=== PATIENT | female | born 1980 | race Caucasian/White ===

== ENCOUNTER 2017-02-02 23:19 | Emergency (ER) | payer SELFPAY ==
[~2017-02-02] VITALS: Ht 162.6 cm; Wt 61.2 kg
[~2017-02-02 23:19] MED LIST: BACTRIM DS TAB1 EACH PO; KEFLEX500 MG PO
[2017-02-02] MEDS ORDERED: [UNRECOGNIZED DRUG - REMARK] (23:35)
[2017-02-02] MEDS ORDERED: VISTARIL25 MG PO (23:35)
[2017-02-03] MEDS ORDERED: NORCO 5-325 TA1 EACH PO (00:20)
[2017-02-03] MEDS ORDERED: CRUTCH1 EACH MISC (00:21)
== END 2017-02-03 00:52 | disposition home or self-care (01) ==
LOC: ED 23:19
DX: S70.02XA Contusion of left hip, initial encounter (principal); F17.200 Nicotine dependence, unspecified, uncomplicated; Z98.51 Tubal ligation status; Z79.899 Other long term (current) drug therapy; V29.9XXA Motorcycle rider (driver) (passenger) injured in unspecified traffic accident, initial encounter
CPT/HCPCS: 73080; 73502; 99283

== ENCOUNTER 2018-01-06 11:47 | Emergency (ER) | payer MEDICAID ==
[~2018-01-06] VITALS: Ht 162.6 cm; Wt 72.6 kg
[~2018-01-06 11:47] MED LIST changes: +CRUTCH1 EACH MISC; +NORCO 5-325 TA1 EACH PO; +VISTARIL25 MG PO; +[UNRECOGNIZED DRUG - REMARK]
[2018-01-06] MEDS ORDERED: LITHIUM CARBON150 MG PO (12:01)
[2018-01-06] MEDS ORDERED: CIPRO500 MG PO (14:32)
[2018-01-06] MEDS ORDERED: PROMETHAZINE HC50 MG PO (14:32)
== END 2018-01-06 14:46 | disposition home or self-care (01) ==
LOC: ED 11:47
DX: K52.9 Noninfective gastroenteritis and colitis, unspecified (principal); F15.10 Other stimulant abuse, uncomplicated; F17.200 Nicotine dependence, unspecified, uncomplicated; Z79.899 Other long term (current) drug therapy
CPT/HCPCS: 74177; 80053; 81001; 83690; 84703; 85025; 96361; 96374; 96375; 99284; G0480; J1885; J2060; J2405; J2550; J7030; Q9967

== ENCOUNTER 2018-09-23 11:03 | Emergency (ER) | payer OTHER ==
[~2018-09-23] VITALS: Ht 162.6 cm; Wt 72.6 kg
[~2018-09-23 11:03] MED LIST changes: +CIPRO500 MG PO; +LITHIUM CARBON150 MG PO; +PROMETHAZINE HC50 MG PO
--- OUTSIDE RECORDS SUMMARY | 2018-09-23 11:08 | XMS ---
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 Care History Medical/Surgical 09/23/2018 [facility] \T\middot;\T\nbsp; PATIENT IS A [employer] MEMBER. \T\middot;\T\nbsp; PLEASE REFER PATIENT TO [facility] FOR NON EMERGENT MEDICAL NEEDS. \T\middot;\ T\nbsp; [facility] CAN SEE PATIENTS SAME DAY FOR APTS IF PATIENT CALLS FIRST THING IN THE MORNING. E.D. VISIT COUNT (12 MO.) 2 [facility] TOTAL 2 NOTE: Visits indicate total known visits. 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
== END 2018-09-23 11:22 | disposition home or self-care (01) ==
LOC: ED 11:03
DX: M79.675 Pain in left toe(s) (principal)

== ENCOUNTER 2019-04-09 03:31 | Emergency (ER) | payer OTHER ==
[~2019-04-09] VITALS: Ht 162.6 cm; Wt 72.6 kg
--- OUTSIDE RECORDS SUMMARY | 2019-04-09 03:34 | XMS ---
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 Care History Medical/Surgical 09/23/2018 [facility] \T\middot;\T\nbsp; PATIENT IS A [employer] MEMBER. \T\middot;\T\nbsp; PLEASE REFER PATIENT TO [facility] FOR NON EMERGENT MEDICAL NEEDS. \T\middot;\ T\nbsp; [facility] CAN SEE PATIENTS SAME DAY FOR APTS IF PATIENT CALLS FIRST THING IN THE MORNING. E.D. VISIT COUNT (12 MO.) 2 [facility] TOTAL 2 NOTE: Visits indicate total known visits. ED/UCC VISIT TRACKING (12 MO.) 04/09/2019 03:32 [facility] [place] TYPE: Emergency COMPLAINT: - CHEST AND ABDOMINAL PAIN 09/23/2018 11:04 [facility] [place] TYPE: Emergency COMPLAINT: - L BIG TOE PAIN/INJURY/MSE TO CLINIC DIAGNOSES: - Pain in left toe(s) INPATIENT VISIT TRACKING (12 MO.) No inpatient visits to display in this time frame [email or web address]
[2019-04-09] MEDS ORDERED: FUROSEMIDE20 MG PO (03:55)
[2019-04-09] MEDS ORDERED: ZOFRAN4 MG PO (06:19)
--- NOTE | 2019-04-09 20:05 | EKG ---
[facility] [address] [place] [address] Signed Poor data quality, interpretation may be adversely affected Normal sinus rhythm Left axis deviation ST \T\ T wave abnormality, consider anterior ischemia Prolonged QT Abnormal ECG No previous ECGs available Confirmed by LUCY CERDA MD ([id number]) on 04/09/2019 8:05:37 PM Electronically Signed By: LUCY CERDA MD 04/09/192004 PATIENT NAME: RENEE LEWIS KAREN Electrocardiogram DATE OF : 80 PHYSICIAN: LUCY CERDA MD REPORT #: [id number] REPORT IS CONFIDENTIAL AND NOT TO BE RELEASED WITHOUT AUTHORIZATION
== END 2019-04-09 06:45 | disposition home or self-care (01) ==
LOC: ED 03:31
DX: K29.00 Acute gastritis without bleeding (principal); F15.10 Other stimulant abuse, uncomplicated; F17.200 Nicotine dependence, unspecified, uncomplicated; F31.9 Bipolar disorder, unspecified; Z79.899 Other long term (current) drug therapy
CPT/HCPCS: 80053; 81001; 83690; 84703; 85025; 87088; 93005; 93010; 96374; 96375; 99285-25; G0480; J1885; J2405; J7030

== ENCOUNTER 2020-02-13 17:30 | Emergency (ER) | payer OTHER ==
[~2020-02-13] VITALS: Ht 162.6 cm; Wt 81.7 kg
--- OUTSIDE RECORDS SUMMARY | ~2020-02-13 | XMS | Encounter Summary ---
Demographics + + + | Address | [address] | | | [place] [address] | + + + | Home Phone | | + + + | Preferred Language | Unknown | + + + | Marital Status | Single | + + + | Sikhism Affiliation | Unknown | + + + | Race | Unknown | + + + | Ethnic Group | Unknown | + + + Author + + + | Author | [facility] | | | and [place] | + + + | Organization | [facility] | | | and [place] | + + + | Address | Unknown | + + + | Phone | Unavailable | + + + Support + + +---------+ + | Name | Relationship | Address | Phone | + + +---------+ + | Kristy Younger | ECON | Unknown | | + + +---------+ + Care Team Providers + +------+ + | Care Brick Shader Name | Role | Phone | + +------+ + | Nirali Romero PA-C | PCP | | + +------+ + Encounter Details +--------+ + + + + | Date | Type | Department | Care Team | Description | +--------+ + + + + | 11/13/ | Orders Only | [facility] | Preston Cardona, | | | 2018 | | CARDIOLOGY [place] | [address] | | | | | [address] | [place] | | | | | [place] | [address] | | | | | [address] | | | | | | [phone] | | | +--------+ + + + + Social History + +-------+ +--------+------+ | Tobacco Use | Types | Packs/Day | Years | Date | | | | | Used | | + +-------+ +--------+------+ | Never Assessed | | | | | + +-------+ +--------+------+ + + + | Sex Assigned at | Date Recorded | | | | + + + | Not on file | | + + + documented as of this encounter Plan of Treatment Not on filedocumented as of this encounter Visit Diagnoses Not on filedocumented in this encounter"
--- OUTSIDE RECORDS SUMMARY | ~2020-02-13 | XMS | Encounter Summary ---
Demographics + + + | Address | [address] | | | [place] [address] | + + + | Home Phone | | + + + | Preferred Language | Unknown | + + + | Marital Status | Single | + + + | Bahai Affiliation | Unknown | + + + | Race | Unknown | + + + | Ethnic Group | Other Race | + + + Author + + + | Author | [facility] | + + + | Organization | [facility] | + + + | Address | Unknown | + + + | Phone | Unavailable | + + + Support +---------+ +---------+---------+ | Name | Relationship | Address | Phone | +---------+ +---------+---------+ | Unk Groverk | ECON | Unknown | nophone | +---------+ +---------+---------+ Care Team Providers + +------+ + | Care School Library Media Specialist Name | Role | Phone | + +------+ + | Unknown | PCP | Unavailable | + +------+ + Encounter Details +--------+ + + + + | Date | Type | Department | Care Team | Description | +--------+ + + + + | 03/11/ | Abstract | Cardiology General | Unknown . | | | 2019 | | at [facility] [address] | | | | | | [facility] | | [facility], | | | | | | [facility] | | | | | | Floor [place], [place] | | | | | | [address] | | | | | | [phone] | | | +--------+ + + + [...] on file | | + + + + + + + | Job Start Date | Occupation | Industry | + + + + | Not on file | Not on file | Not on file | + + + + + + + + | Travel History | Travel Start | Travel End | + + + + + + | No recent travel history available. | + + documented as of this encounter Progress Elsa Davenport - 03/11/2019 11:01 AM PDT CHF New Patient Record Check List Procedure Where/Date Date requested Report received? Y/N, Where? Imaging received? CD/ IMPAX/Not Available Comments Referring Provider Dr. Cardona N/A External Referral Last EKG - Report only 08/03/2018 In CE N/A Last Echo/Stress Echo - images and report TTE 12/18/18 02/27/19 Rerequested 03/11/19 to be pushed In CE Received and in Impax Last Stress test - report only NA N/A Last Cardiac Catheterization - images and report NA Last Holter or Event monitor - report N/A Labs - (BMP, NT Pro BNP, Lipids, TSH, Hemoglobin A1C in last 6 months) In CE N/A Last Device Check Report *Schedule Device Check if pt is due NA N/A Last Cardiac MRI - report/images if avail NA Patient Preferred Lab [facility]. N/A N/A Additional Comments: documented in this enc ounter Plan of Treatment Not on filedocumented as of this encounter Visit Diagnoses Not on filedocumented in this encounter"
--- OUTSIDE RECORDS SUMMARY | ~2020-02-13 | XMS | Encounter Summary ---
Demographics + + + | Address | [address] | | | [place] [address] | + + + | Home Phone | | + + + | Preferred Language | Unknown | + + + | Marital Status | Single | + + + | Anabaptist Affiliation | Unknown | + + + | Race | Unknown | + + + | Ethnic Group | Unknown | + + + Author + + + | Author | [facility] | | | and [place] | + + + | Organization | [facility] | | | and [place] | [...] Team Providers + +------+ + | Care Surfacing Machine Operator Name | Role | Phone | + +------+ + | Nirali Romero PA-C | PCP | | + +------+ + Reason for Visit + + + | Reason | Comments | + + + | Follow-up | | + + + Evaluate & Treat (Routine) +--------+--------+ + + + + | Status | Reason | Specialty | Diagnoses / | Referred By | Referred To | | | | | Procedures | Contact | Contact | +--------+--------+ + + + + | Closed | | | Diagnoses | Alsamara, | Alsamara, | | | | | Long QT | MD Preston | MD Preston | | | | | syndrome | [address] | | | | | Schedule per | [address] | [address] | | | | | DrBharathi | [address] | [place], [place] | | | | | Alsam[place] | [place], [place] | [address] Phone: | | | | | Procedures | [address] | [phone] | | | | | CRD FOLLOW | Phone: | Fax: | | | | | UP | [phone] | [phone] | | | | | | Fax: | | | | | | | [phone] | | +--------+--------+ + + + + Encounter Details +--------+ + + + + | Date | Type | Department | Care Team | Description | +--------+ + + + + | 10/28/ | Virtual | [facility] | Preston Cardona, | Syncope, vasovagal | | 2019 | Office | CARDIOLOGY [facility] | MD Jose RODRIGUEZ | (Primary Dx); | | | Visit | [address] | [address] [address] [place], [place] | Moderate to severe | | | | [address] | [address] | pulmonary | | | | [place] | | hypertension (HCC); | | | | [address] | | CHF with right heart | | | | [phone] | | failure (HCC) | +--------+ + + + + Social History + +-------+ +--------+------+ | Tobacco Use | Types | Packs/Day | Years | Date | | | | | Used | | + +-------+ +--------+------+ | Current Every Day | | 0.25 | | | | Smoker | | | | | + +-------+ +--------+------+ + +---+---+---+ | Smokeless Tobacco: | | | | | Never Used | | | | + +---+---+---+ + + +---------+ + | Alcohol Use | Drinks/Week | oz/Week | Comments | + + +---------+ + | Not Currently | | | Alcoholic | | | | | Drinks/day: past use | + + +---------+ + + + + | Sex Assigned at | Date Recorded | | | | + + + | Not on file | | + + + documented as of this encounter Last Filed Vital Signs + + + + + | Vital Sign | Reading | Time Taken | Comments | + + + + + | Blood Pressure | 119/88 | 10/29/2019 2:49 PM | | | | | PDT | | + + + + + | Pulse | 90 | 10/29/2019 2:49 PM | | | | | PDT | | + + + + + | Temperature | - | - | | + + + + + | Respiratory Rate | - | - | | + + + + + | Oxygen Saturation | - | - | | + + + + + | Inhaled Oxygen | - | - | | | Concentration | | | | + + + + + | Weight | 81.6 kg (180 lb) | 10/29/2019 2:49 PM | | | | | PDT | | + + + + + | Height | 162.6 cm (5' 4") | 10/29/2019 2:49 PM | | | | | PDT | | + + + + + | Body Mass Index | 30.9 | 10/29/2019 2:49 PM | | | | | PDT | | + + + + + documented in this encounter Progress Notes Preston Cardona MD - 10/29/2019 3:15 PM PDTFormatting of this note might be different f rom the original. Lu Reagan has independently initiated the visit. Lu Reagan verbally confirmed her cho ice to initiate care by, and consents to receive care by Telephone. Participants: Patient All medical advice and/or management options were discussed 10/29/2019. Clinical discussion length with provider (including additional time spent for relevant tootie t review to patient's care): 11-20 minutes of medical discussion via telephone visit ([id number]) Patient has not been seen in office within the past 7 days, and outcome of this call is not to recommend soonest available office visit. No follow-ups on file. Subjective: Patient ID: Lu Reagan is a 38 y.o. female. CC: Chief Complaint Patient presents with Follow-up HPI: Patient is a 38-year-old female with history of methamphetamine abuse and right heart failu re. Has been using 40 mg furosemide daily. Was started on previous evaluation on low-dose furosemide. Feeling better no further lower extremity edema. Initially was evaluated for syncope, episodes that happened back in the spring of 2017. Latest was again unwitnessed, at that time patient unfortunately was not wearing her Holter monitor. The episodes were unwitnessed as well. Echocardiogram was only performed and showed severe pulmonary hypertension, severely dilate d RV with severely impaired systolic function. Previous patient HPI " Patient had episodes would be alone. One of at her friend's house sitting did get up to ans wer the door and then found herself on the floor. Second episode patient was up, went to the bathroom and found herself on the floor. At that time her boyfriend was present he describes seizure activity in her upper body. Total unconsciousness time was less than a minute. Pre-episode patient describes symptoms of dizziness, feels hot flashes, diaphoretic before she wakes up on the floor. First episode patient used to use methamphetamine, which she leans that she stops however s he did get her second episode. Assessment & Plan Patient 38 y.o. 1. Severe pulmonary hypertension, systemic. Patient is class II-III at this time. 2. Severe tricuspid regurgitation. 3. Severely enlarged RV with severely impaired systolic function. 4. Syncopal possibly secondary to above. 5. History of substance abuse. 6. History of tobacco abuse.. 7. Prolonged QT on EKG. 8. Bipolar disorder. Plan: We will change furosemide to 40 mg daily. Patient will continue to follow-up with Dr. Gregorio Younger at [facility]. Will need right heart catheterization. In the view of severe pulmonary hypertension and severely impaired right ventricular functi on, syncopal episodes can be attributed to that. Reinforced with the patient refraining from tobacco and any drug/substance abuse. We will need right heart catheterization to evaluate pressures. We will follow-up with further recommendations. Preston Cardona MD 10/29/2019 documented in this encounter Plan of Treatment Not on filedocumented as of this encounter Visit Diagnoses + + | Diagnosis | + + | Syncope, vasovagal - Primary Syncope and collapse | + + | Moderate to severe pulmonary hypertension (HCC) Other chronic pulmonary heart | | diseases | + + | CHF with right heart failure (HCC) Congestive heart failure, unspecified | + + documented in this encounter
--- OUTSIDE RECORDS SUMMARY | ~2020-02-13 | XMS | Encounter Summary ---
Demographics + + + | Address | [address] | | | [place] [address] | + + + | Home Phone | | + + + | Preferred Language | Unknown | + + + | Marital Status | Single | + + + | Anabaptist Affiliation | Unknown | + + + | Race | Unknown | + + + | Ethnic Group | Unknown | + + + Author + + + | Author | [facility] | | | and [place] | + + + | Organization | [facility] | | | and [place] [...] Team Providers + +------+ + | Care Drug Safety Physician Name | Role | Phone | + +------+ + | Nirali Romero PA-C | PCP | | + +------+ + Reason for Referral Evaluate & Treat (Routine) +--------+ + + + + + | Status | Reason | Specialty | Diagnoses / | Referred By | Referred To | | | | | Procedures | Contact | Contact | +--------+ + + + + + | Closed | Specialty | Pulmonary | Diagnoses | Dulce, | Aren, | | | Services | Disease | Moderate to | MD Preston | Gregorio | | | Required | | severe | [address] | MD Stas | | | | | pulmonary | [address] | [address] | | | | | hypertension | [address] [address] | [address] | | | | | ([facility]) CHF | [place], [place] | [address] | | | | | with right | [address] | [place], [place] | | | | | heart | Phone: | [address] Phone: | | | | | failure | [phone] | [phone] | | | | | ([facility]) | Fax: | Fax: | | | | | | [phone] | [phone] | +--------+ + + + + + Reason for Visit + + + | Reason | Comments | + + + | Shortness of Breath | Pulmonary hypertension | + + + Encounter Details +--------+---------+ + + + | Date | Type | Department | Care Team | Description | +--------+---------+ + + + | 04/02/ | Office | [facility] | Preston Mayers, | Moderate to severe | | 2019 | Visit | CARDIOLOGY [facility] | [address] | pulmonary | | | | [address] | [place], [place] | hypertension (HCC) | | | | [address] | [address] | (Primary Dx); CHF | | | | [place] | | with right heart | | | | [address] | | failure (HCC) | | | | [phone] | | | +--------+---------+ + + + Social History + +-------+ +--------+------+ | Tobacco Use | Types | Packs/Day | Years | Date | | | | | Used | | + +-------+ +--------+------+ | Current Every Day | | 0.5 | | | | Smoker | | | | | + +-------+ +--------+------+ + +---+---+---+ | Smokeless Tobacco: | | | | | Never Used | | | | + +---+---+---+ + + + | Sex Assigned at | Date Recorded | | | | + + + | Not on file | | + + + documented as of this encounter Last Filed Vital Signs + + + + + | Vital Sign | Reading | Time Taken | Comments | + + + + + | Blood Pressure | 120/82 | 04/02/2019 10:18 AM | | | | | PDT | | + + + + + | Pulse | 104 | 04/02/2019 10:18 AM | | | | | PDT | | + + + + + | Temperature | - | - | | + + + + + | Respiratory Rate | - | - | | + + + + + | Oxygen Saturation | 99% | 04/02/2019 10:18 AM | | | | | PDT | | + + + + + | Inhaled Oxygen | - | - | | | Concentration | | | | + + + + + | Weight | 81.6 kg (179 lb 12.8 | 04/02/2019 10:18 AM | | | | oz) | PDT | | + + + + + | Height | 162.6 cm (5' 4") | 04/02/2019 10:18 AM | | | | | PDT | | + + + + + | Body Mass Index | 30.86 | 04/02/2019 10:18 AM | | | | | PDT | | + + + + + documented in this encounter Progress Notes Preston Mayers MD - 04/02/2019 10:00 AM PDTFormatting of this note might be different f rom the original. Date of visit: 04/02/2019 Primary Care Physician: Nirali Romero PA-C CHIEF COMPLAINT: Chief Complaint Patient presents with Shortness of Breath Pulmonary hypertension HISTORY OF PRESENT ILLNESS: Lu is 38 y.o. here for here for visit. No recurrent syncopal episodes. Was started on previous evaluation on low-dose furosemide. Feeling better no further lower extremity edema. Initially was evaluated for syncope, episodes that happened back in the spring. Latest was again unwitnessed, at that time [...] s he did get her second episode. Past medical history, SH, FH, and medications were reviewed in the chart. Medications: Outpatient Encounter Medications as of 04/02/2019 Medication Sig Dispense Refill furosemide (LASIX) 20 mg tablet Take 1 tablet by mouth 2 times daily. 120 tablet 1 [DISCONTINUED] furosemide (LASIX) 20 mg tablet Take 1 tablet by mouth daily as needed. 30 tablet 1 isosorbide dinitrate (ISORDIL) 5 mg tablet Take 1 tablet by mouth 2 (two) times daily. 60 tablet 2 No facility-administered encounter medications on file as of 04/02/2019. Allergies No Known Allergies REVIEW OF SYSTEMS: Constitutional: Still for fatigue. No fever, chills, and rigors. Has been stable. HEENT: Negative for nosebleeds, ear discharge, nasal congestion or soar throat. Eyes: Negative for visual disturbance, redness, or secretion. Respiratory: Negative for cough, sputum production, hemoptysis, wheezing. Cardiovascular: As HPI. Gastrointestinal: Negative for nausea, vomiting, diarrhea, abdominal pain and blood in stoo l. Genitourinary: Negative for dysuria or hematuria. Musculoskeletal: Negative for myalgias, back pain or arthralgia. Skin: Negative for rash. Neurological: Negative for dizziness. No numbness. No recent falls. No slurred speech. Hematological: No significant bruising. Psychiatric/Behavioral: No depression or anxiety. PHYSICAL EXAM Vital Signs: BP 120/82 | Pulse 104 | Ht 1.626 m (5' 4") | Wt 81.6 kg (179 lb 12.8 oz) | SpO2 99% | BMI 30.86 kg/m GENERAL APPEARANCE: Alert, oriented, cooperative, no distress, appears stated age. HEENT: Extraocular movements were intact. No jaundice. Pupiles round and reactive. NECK: No JVD, lymphadenopathy. Carotid upstrokes normal. No carotid bruit heard. CARDIAC: Regular rhythm and rate. There is normal S1 and S2. No galop. No murmur. CHEST: Normal bilateral symmetrical chest excursion.ackles or wheezing. No evidence of dull ness. ABDOMEN: Soft.No tenderness or guarding. No palpable organs. Active bowel sounds. EXTREMITIES: No lower extremities edema, cyanosis or clubbing. NEURO: Alert and oriented times three with no focal deficit. Cranial nerves are grossly no rmal. SKIN: Warm and dry. No rash. Psych: Normal affect and mood. 09/19/2017 Glucose 67, BUN 13, creatinine 0.8, sodium 139, potassium 4.0, bicarbonate 21, calcium 8.7, AST 24, AST 29, alk phos 83, TSH 0.54. WBC 12.9, hemoglobin 16.16, platelets 170. BNP 313 No results found for: NA, K, CO2, BUN, CREA, CALCIUM, MG No results found for: WBC, HGB, HCT, MCV, LABPLAT No results found for: CHOL, TRIG, HDL, LDLEX, GLUF, TSH EC07/24/2018 Ordered and reviewed by myself showed normal sinus rhythm, T-wave inversions in the anterio r leads, prolonged QT. Last Echo: 12/18/2018 1. The left ventricle is normal in size, wall thickness and systolic function EF 55-60%. 2. There is septal flattening in diastole and systole which is consistent with elevated rig ht ventricular pressure. 3. The right ventricle is severely enlarged and severely impaired systolic function. 4. Severe tricuspid regurgitation and severe pulmonary hypertension RVSP 93 mmHg. 5. There is no pericardial effusion. Last Stress test: Last Cath: Last US carotid: Event Monitor 08/08/2018 30 days. No arrhythmia noted. ASSESSMENT: Patient is 38 y.o. with 1. Severe pulmonary hypertension, systemic. Patient is class II-III at this time. 2. Severe tricuspid regurgitation. 3. Severely enlarged RV with severely impaired systolic function. 4. Syncopal possibly secondary to above. 5. History of substance abuse. 6. 3 of tobacco abuse.. 7. Prolonged QT on EKG. 8. Bipolar disorder. Plan: Patient is feeling better with low-dose furosemide. 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 Will be referred to Dr. Gregorio Younger at [facility] in [facility]. In the view of severe pulmonary hypertension and severely impaired right ventricular functi on, syncopal episodes can be attributed to that. ECG finding of prolonged QT is most likely incidental. Reinforced with the patient refraining from tobacco and any drug/substance abuse. We will need right heart catheterization to evaluate pressures. Continue with low-dose furosemide. New with small dose of isosorbide dinitrate 5 mg twice daily. If patient needs any antipsychotic medication recommend monitoring her QT interval. We will follow-up with further recommendations. *This report has been prepared using a voice recognition system. The report was reviewed fo r accuracy, however, sound-alike word errors, addition and/or deletions may occur. If there is any question about this report please contact me. Preston Mayers MD, MPH documented in this encounter Plan of Treatment + + +--------+ + + | Name | Type | Priori | Associated Diagnoses | Order Schedule | | | | ty | | | + + +--------+ + + | Ambulatory Referral | Outpatient | Routin | Moderate to severe | Ordered: 04/02/2019 | | to [facility] | Referral | e | pulmonary | | | Pulmonology | | | hypertension (HCC) | | | | | | CHF with right heart | | | | | | failure (HCC) | | + + +--------+ + + documented as of this encounter Visit Diagnoses + + | Diagnosis | + + | Moderate to severe pulmonary hypertension (HCC) - Primary Other chronic pulmonary | | heart diseases | + + | CHF with right heart failure (HCC) Congestive heart failure, unspecified | + + documented in this encounter
--- OUTSIDE RECORDS SUMMARY | ~2020-02-13 | XMS | Clinical Summary ---
Demographics + + + | Address | [address] | | | [place] [address] | + + + | Home Phone | | + + + | Preferred Language | Unknown | + + + | Marital Status | Single | + + + | Muslim Affiliation | Unknown | + + + | Race | Unknown | + + + | Ethnic Group | Other Race | + + + Author + + + | Author | [facility] | + + + | Organization | [facility] | + + + | Address | Unknown | + + + | Phone | Unavailable | + + + Support +---------+ +---------+---------+ | Name | Relationship | Address | Phone | +---------+ +---------+---------+ | Unk Unk | ECON | Unknown | nophone | +---------+ +---------+---------+ Care Team Providers + +------+ + | Care Director Supply Chain Name | Role | Phone | + +------+ + | Unknown | PCP | Unavailable | + +------+ + Source Comments SHIRA is fully live on both [facility] and [facility] Allergies Not on File Medications Not on file Active Problems Not on file Social History + +-------+ +--------+------+ | Tobacco [...] recent travel history available. | + + Last Filed Vital Signs Not on file Plan of Treatment + + + + + | Health Maintenance | Due Date | Last Done | Comments | + + + + + | Pneumococcal | | | | | vaccination (1 of | 7 | | | | - PPSV23) | | | | + + + + + | Influenza (Flu) | | | | | vaccination (#1) | 9 | | | + + + + + Results Not on filefrom Last 3 Months Insurance + +--------+ +--------+-------+---------+--------+ | Payer | Benefi | Subscriber | Effect | Phone | Address | Type | | | t Plan | ID | mayra | | | | | | / | | Dates | | | | | | Group | | | | | | + +--------+ +--------+-------+---------+--------+ | BUSINESS PROCESS MODELER MEDICAID | BUSINESS PROCESS MODELER | xxxxxxxx | 03/18/20 | | | Medica | | | [place] | | 18-Pre | | | id | | | N [place] | | sent | | | | + +--------+ +--------+-------+---------+--------+ + +--------+ +--------+ + + | Guarantor Name | Accoun | Relation to | Date | Phone | Billing Address | | | t Type | Patient | of | | | | | | | | | | + +--------+ +--------+ + + | Lu Reagan | Person | Self | [birth year] | [address] | | | al/Fam | | 1981 | [phone] | [place] [address] | | | gita | | | 9 (Home) | | + +--------+ +--------+ + +"
--- OUTSIDE RECORDS SUMMARY | ~2020-02-13 | XMS | Encounter Summary ---
Demographics + + + | Address | [address] | | | [place] [address] | + + + | Home Phone | | + + + | Preferred Language | Unknown | + + + | Marital Status | Single | + + + | Lutheran Affiliation | Unknown | + + + | Race | Unknown | + + + | Ethnic Group | Unknown | + + + Author + + + | Author | [facility] | | | and [place] | + + + | Organization | [facility] | | | and [...] Team Providers + +------+ + | Care Battery Installer Name | Role | Phone | + +------+ + | Nirali Romero PA-C | PCP | | + +------+ + Reason for Visit + +--------+ + | Reason | Onset | Comments | | | Date | | + +--------+ + | Medication Refill | 08/25/ | Furosemide, Isosorbide | | | 2020 | | + +--------+ + Encounter Details +--------+--------+ + + + | Date | Type | Department | Care Team | Description | +--------+--------+ + + + | 08/25/ | Refill | [facility] | Danielle Schaefer, | Medication Refill | | 2019 | | [facility] [place] | [employer] | (Furosemide, | | | | [address] | | Isosorbide) | | | | [place], [place] | | | | | | [address] | | | | | | [phone] | | | +--------+--------+ + + + Social History + +-------+ [...]
--- OUTSIDE RECORDS SUMMARY | ~2020-02-13 | XMS | Encounter Summary ---
Demographics + + + | Address | [address] | | | [place] [address] | + + + | Home Phone | | + + + | Preferred Language | Unknown | + + + | Marital Status | Single | + + + | Confucianist Affiliation | Unknown | + + + | Race | Unknown | + + + | Ethnic Group | Unknown | + + + Author + + + | Author | [facility] | | | and [place] | + + + | Organization | [facility] | | | and [place] [...] Team Providers + +------+ + | Care Department Of Natural Resources Officer Name | Role | Phone | + +------+ + | Nirali Romero PA-C | PCP | | + +------+ + Encounter Details +--------+ + + + + | Date | Type | Department | Care Team | Description | +--------+ + + + + | 01/01/ | Orders Only | [facility] | Preston Cardona, | | | 2019 | | CARDIOLOGY [place] | [address] | | | | | [address] | [place] | | | | | [place] | [address] | | | | | [address] | | | | | | [phone] | | | +--------+ + + + [...]
--- OUTSIDE RECORDS SUMMARY | ~2020-02-13 | XMS | Encounter Summary ---
Demographics + + + | Address | [address] | | | [place] [address] | + + + | Home Phone | | + + + | Preferred Language | Unknown | + + + | Marital Status | Single | + + + | Buddhist Affiliation | Unknown | + + + | Race | Unknown | + + + | Ethnic Group | Other Race | + + + Author + + + | Author | [facility] | + + + | Organization | [facility] | + + + | Address | Unknown | + + + | Phone | Unavailable | + + + Support +---------+ +---------+---------+ | Name | Relationship | Address | Phone | +---------+ +---------+---------+ | Unk Groverk | ECON | Unknown | nophone | +---------+ +---------+---------+ Care Team Providers + +------+ + | Care Director Of Undergraduate Admissions Name | Role | Phone | + +------+ + | Unknown | PCP | Unavailable | + +------+ + Encounter Details +--------+ + + + + | Date | Type | Department | Care Team | Description | +--------+ + + + + | 03/11/ | Abstract | Cardiology General | Unknown . | | | 2019 | | at [facility] [address] | | | | | | [facility] | | | | [facility], | | | | | | [facility] | | | | | | Floor [place], [place] | | | | | | [address] | | | | | | [phone] | | | +--------+ + + + [...]
--- OUTSIDE RECORDS SUMMARY | ~2020-02-13 | XMS | Encounter Summary ---
Demographics + + + | Address | [address] | | | [place] [address] | + + + | Home Phone | | + + + | Preferred Language | Unknown | + + + | Marital Status | Single | + + + | Jew Affiliation | Unknown | + + + | Race | Unknown | + + + | Ethnic Group | Unknown | + + + Author + + + | Author | [facility] | | | and [place] | + + + | Organization | [facility] | | | and [place] | [...] Team Providers + +------+ + | Care Aquatics Manager Name | Role | Phone | + +------+ + | Nirali Romero PA-C | PCP | | + +------+ + Encounter Details +--------+ + + + + | Date | Type | Department | Care Team | Description | +--------+ + + + + | 12/18/ | Orders Only | [facility] | Preston Cardona, | | | 2019 | | CONVERSION [address] | MD [address] | | | | [address] | [place] | | | | | [place] | [address] | | | | | [address] | | | | | | [phone] | | | +--------+ + + + [...] Not on filedocumented as of this encounter Procedures + +--------+ + + + | Procedure Name | Priori | Date/Time | Associated Diagnosis | Comments | | | ty | | | | + +--------+ + + + | ECHO INTERPRETATION | Routin | 12/18/2018 | | Results for this | | OF OUTSIDE FILMS | e | 12:10 PM | | procedure are in the | | | | PDT | | results section. | + +--------+ + + + documented in this encounter Results ECHO Interpretation of Outside Films (12/18/2018 12:10 PM PDT) + + | Specimen | + + | | + + + + + | Impressions | Performed At | + + + | 1. The left ventricle is normal in size, wall thickness and systolic | | | function EF 55-60%. 2. There is septal flattening in diastole and | | | systole which is consistent with elevated right ventricular pressure. | | | 3. The right ventricle is severely enlarged and severely impaired | | | systolic function. 4. Severe tricuspid regurgitation and severe | | | pulmonary hypertension RVSP 93 mmHg. 5. There is no pericardial | | | effusion. | | + + + + + + | Narrative | Performed At | + + + | Patient Name: Lu Reagan Date of : 1980 | | | Performing Physician: Preston Cardona | | | | | | INDICATIONS Syncope, tobacco abuse, prolonged QT | | | interval CONCLUSIONS 1. The left ventricle is normal | | | in size, wall thickness and systolic function EF 55-60%. 2. There is | | | septal flattening in diastole and systole which is consistent with | | | elevated right ventricular pressure. 3. The right ventricle is | | | severely enlarged and severely impaired systolic function. 4. Severe | | | tricuspid regurgitation and severe pulmonary hypertension RVSP 93 | | | mmHg. 5. There is no pericardial effusion. FINDINGS -------- | | | ECG rhythm: Sinus rhythm. Study: A 2-dimensional transthoracic | | | echocardiogram with m-mode, spectral and color flow Doppler was | | | perfomed. Study: This was a technically adequate study. Left | | | Ventricle: Overall left ventricular systolic function is normal with, | | | an EF between 55 - 60 %. Left Ventricle: The left ventricle cavity | | | size is normal. Left Ventricle: Left ventricular wall thickness is | | | normal. Left Ventricle: There is septal flattening in diastole and | | | systole which is consistent with right ventricular pressure and volume | | | overload. Right Ventricle: The right ventricle is severely enlarged. | | | Right Ventricle: The right ventricular systolic function is severely | | | impaired. Left Atrium: The left atrium is normal in size. Right | | | Atrium: The right atrium is moderately enlarged. Aortic Valve: The | | | aortic valve appears to be trileaflet. Aortic Valve: There is no | | | evidence of aortic regurgitation. Aortic Valve: There is no evidence | | | of aortic stenosis. Mitral Valve: The mitral valve is normal. Mitral | | | Valve: No mitral regurgitation. Tricuspid Valve: Severe tricuspid | | | regurgitation present. Tricuspid Valve: There is severe pulmonary | | | hypertension. Tricuspid Valve: The right ventricular systolic | | | pressure (pulmonary artery systolic pressure), as measured by Doppler, | | | is 93.01mmHg. Pulmonic Valve: The pulmonic valve is normal. | | | Pulmonic Valve: Mild pulmonic regurgitation. Pericardium: There is no | | | pericardial effusion. Pericardium: No pleural effusion seen. | | | IVC/Hepatic Veins: The IVC is normal size (1.5-2.5cm) and collapses | | | <50% with sniff, consistent with central venous pressures of | | | 10-15mmHg. Aorta: The aortic root, ascending aorta and aortic arch | | | are normal. General comments: Left a message for the patient to call | | | back, sent a report to PCP. MEASUREMENTS Ao asc: | | | 2.97 cm Ao Diam: 2.97 cm Ao sinus: 2.[address] junct: | | | 2.80 cm IVC: 2.53 cm LA Major: 4.22 cm EDV(Teich): 26.02 | | | ml IVSd: 0.90 cm LVIDd: 2.65 cm LVPWd: 0.87 cm LVOT Area: | | | 3.43 cm2 LVOT Diam: 2.09 cm %FS: 27.97 % EF(Teich): | | | 56.20 % ESV(Teich): 11.39 ml LVIDs: 1.91 cm SV(Teich): | | | 14.62 ml RA Major: 5.22 cm RV Major: 8.48 cm RV Minor: | | | 4.15 cm RVIDd: 4.62 cm LVEF MOD A2C: 51.63 % SV MOD A2C: | | | 45.36 ml LVEF MOD A4C: 50.10 % SV MOD A4C: 27.69 ml EF | | | Biplane: 51.63 % LVEDV MOD BP: 71.12 ml LVESV MOD BP: 34.40 | | | ml LVEDV MOD A2C: 87.85 ml LVLd A2C: 7.61 cm LVEDV MOD A4C: | | | 55.28 ml LVLd A4C: 7.23 cm LVESV MOD A2C: 42.48 ml LVLs | | | A2C: 6.28 cm LVESV MOD A4C: 27.58 ml LVLs A4C: 6.16 cm | | | LAESV(A-L): 26.72 ml LAESV Index (A-L): 14.29 ml/m2 LAAs A2C: | | | 10.08 cm2 LAESV A-L A2C: 22.57 ml LALs A2C: 3.82 cm LAAs | | | A4C: 11.93 cm2 LAESV A-L A4C: 26.84 ml LALs A4C: 4.50 cm | | | RAAs: 22.64 cm2 RAESV A-L: 80.25 ml RAESV MOD: 76.00 ml | | | RALs: 5.42 cm TAPSE: 1.97 cm AV maxP.56 mmHg AV | | | meanP.16 mmHg AV Vmax: 1.06 m/s AV Vmean: 0.66 m/s AV | | | VTI: 16.57 cm CB Vmax: 2.81 cm2 CB (VTI): 2.82 cm2 AVAI | | | Vmax: 0.00 cm2/m2 AVAI (VTI): 0.00 cm2/m2 LVOT maxP.06 | | | mmHg LVOT meanP.62 mmHg LVSI Dopp: 25.03 ml/m2 LVSV Dopp: | | | 46.81 ml LVOT Vmax: 0.87 m/s LVOT Vmean: 0.60 m/s LVOT | | | VTI: 13.64 cm MV A Josh: 0.56 m/s MV Dec Meade: 3.22 m/s2 | | | MV DecT: 145.47 ms MV E Josh: 0.46 m/s MV E/A Ratio: 0.82 | | | MV PHT: 42.18 ms MVA By PHT: 5.21 cm2 Septal e': 0.03 m/s | | | Septal E/e': 12.39 Lateral e': 0.07 m/s Lateral E/e': 6.15 | | | RAP: 15 mmHg RVSP: 93.00 mmHg TR maxP.00 mmHg TR | | | Vmax: 4.41 m/s RV s': 0.10 m/s Residential Property Tax Appraiser: Authenticated | | | by: Preston Pamlpetoskey Report Date/Time: 12-18-2018 18:42:9 | | + + + + + | Procedure Note | + + | Deni Whitmore Conversion - 03/06/2019 1:48 PM PDT Patient Name: De Reagan of | | : 1980 Performing Physician: Preston | | Dulce INDICATIONS------ | | -----Syncope, tobacco abuse, prolonged QT interval CONCLUSIONS 1. The left | | ventricle is normal in size, wall thickness and systolic function EF 55-60%.2. There is | | septal flattening in diastole and systole which is consistent with elevated right | | ventricular pressure.3. The right ventricle is severely enlarged and severely impaired | | systolic function.4. Severe tricuspid regurgitation and severe pulmonary hypertension | | RVSP 93 mmHg.5. There is no pericardial effusion. FINDINGS--------ECG rhythm: Sinus | | rhythm.Study: A 2-dimensional transthoracic echocardiogram with m-mode, spectral and | | color flow Doppler was perfomed.Study: This was a technically adequate study.Left | | Ventricle: Overall left ventricular systolic function is normal with, an EF between 55 - | | 60 %.Left Ventricle: The left ventricle cavity size is normal.Left Ventricle: Left | | ventricular wall thickness is normal.Left Ventricle: There is septal flattening in | | diastole and systole which is consistent with right ventricular pressure and volume | | overload.Right Ventricle: The right ventricle is severely enlarged.Right Ventricle: The | | right ventricular systolic function is severely impaired.Left Atrium: The left atrium is | | normal in size.Right Atrium: The right atrium is moderately enlarged.Aortic Valve: The | | aortic valve appears to be trileaflet.Aortic Valve: There is no evidence of aortic | | regurgitation.Aortic Valve: There is no evidence of aortic stenosis.Mitral Valve: The | | mitral valve is normal.Mitral Valve: No mitral regurgitation.Tricuspid Valve: Severe | | tricuspid regurgitation present.Tricuspid Valve: There is severe pulmonary | | hypertension.Tricuspid Valve: The right ventricular systolic pressure (pulmonary artery | | systolic pressure), as measured by Doppler, is 93.01mmHg.Pulmonic Valve: The pulmonic | | valve is normal.Pulmonic Valve: Mild pulmonic regurgitation.Pericardium: There is no | | pericardial effusion.Pericardium: No pleural effusion seen.IVC/Hepatic Veins: The IVC is | | normal size (1.5-2.5cm) and collapses <50% with sniff, consistent with central venous | | pressures of 10-15mmHg.Aorta: The aortic root, ascending aorta and aortic arch are | | normal.General comments: Left a message for the patient to call back, sent a report to | | PCP. MEASUREMENTS Ao asc: 2.97 cmAo Diam: 2.97 cmAo sinus: 2.66 cmAo | | st junct: 2.80 cmIVC: 2.53 cmLA Major: 4.22 cmEDV(Teich): 26.02 mlIVSd: 0.90 | | cmLVIDd: 2.65 cmLVPWd: 0.87 cmLVOT Area: 3.43 [id number] Diam: 2.09 cm%FS: 27.97 | | %EF(Teich): 56.20 %ESV(Teich): 11.39 mlLVIDs: 1.91 cmSV(Teich): 14.62 mlRA | | Major: 5.22 cmRV Major: 8.48 cmRV Minor: 4.15 cmRVIDd: 4.62 cmLVEF MOD A2C: | | 51.63 %SV MOD A2C: 45.36 mlLVEF MOD A4C: 50.10 %SV MOD A4C: 27.69 mlEF Biplane: | | 51.63 %LVEDV MOD BP: 71.12 mlLVESV MOD BP: 34.40 mlLVEDV MOD A2C: 87.85 mlLVLd | | A2C: 7.61 cmLVEDV MOD A4C: 55.28 mlLVLd A4C: 7.23 cmLVESV MOD A2C: 42.48 mlLVLs | | A2C: 6.28 cmLVESV MOD A4C: 27.58 mlLVLs A4C: 6.16 cmLAESV(A-L): 26.72 mlLAESV | | Index (A-L): 14.29 ml/m2LAAs A2C: 10.08 [id number] A-L A2C: 22.57 mlLALs A2C: 3.82 | | cmLAAs A4C: 11.93 [id number] A-L A4C: 26.84 mlLALs A4C: 4.50 cmRAAs: 22.64 | | [id number] A-L: 80.25 mlRAESV MOD: 76.00 mlRALs: 5.42 cmTAPSE: 1.97 cmAV maxPG: | | 4.56 mmHgAV meanP.16 mmHgAV Vmax: 1.06 m/Vijaya Vmean: 0.66 m/Vijaya VTI: 16.57 | | cmAVA Vmax: 2.81 cm2AVA (VTI): 2.82 [id number] Vmax: 0.00 cm2/m2AVAI (VTI): 0.00 | | cm2/m2LVOT maxP.06 mmHgLVOT meanP.62 mmHgLVSI Dopp: 25.03 ml/m2LVSV Dopp: | | 46.81 mlLVOT Vmax: 0.87 m/sLVOT Vmean: 0.60 m/sLVOT VTI: 13.64 cmMV A Josh: | | 0.56 m/sMV Dec Meade: 3.22 m/s2MV DecT: 145.47 msMV E Josh: 0.46 m/sMV E/A Ratio: | | 0.82MV PHT: 42.18 msMVA By PHT: 5.21 by3Gmdajr e': 0.03 m/sSeptal E/e': | | 12.39Lateral e': 0.07 m/sLateral E/e': 6.15RAP: 15 mmHgRVSP: 93.00 mmHgTR maxPG: | | 78.00 mmHgTR Vmax: 4.41 m/sRV s': 0.10 m/s Residential Property Tax Appraiser:Authenticated by: Preston | | [facility] HospitalReport Date/Time: 12-18-2018 18:42:9 IMPRESSION: 1. The left ventricle is normal | | in size, wall thickness and systolic function EF 55-60%.2. There is septal flattening in | | diastole and systole which is consistent with elevated right ventricular pressure.3. | | The right ventricle is severely enlarged and severely impaired systolic function.4. | | Severe tricuspid regurgitation and severe pulmonary hypertension RVSP 93 mmHg.5. There | | is no pericardial effusion. | |IVC: 2.53 cm | |LA Major: 4.22 cm | |EDV(Teich): 26.02 ml | |IVSd: 0.90 cm | |LVIDd: 2.65 cm | |LVPWd: 0.87 cm | |LVOT Area: 3.43 cm2 | |LVOT Diam: 2.09 cm | |%FS: 27.97 % | |EF(Teich): 56.20 % | |ESV(Teich): 11.39 ml | |LVIDs: 1.91 cm | |SV(Teich): 14.62 ml | |RA Major: 5.22 cm | |RV Major: 8.48 cm | |RV Minor: 4.15 cm | |RVIDd: 4.62 cm | |LVEF MOD A2C: 51.63 % | |SV MOD A2C: 45.36 ml | |LVEF MOD A4C: 50.10 % | |SV MOD A4C: 27.69 ml | |EF Biplane: 51.63 % | |LVEDV MOD BP: 71.12 ml | |LVESV MOD BP: 34.40 ml | |LVEDV MOD A2C: 87.85 ml | |LVLd A2C: 7.61 cm | |LVEDV MOD A4C: 55.28 ml | |LVLd A4C: 7.23 cm | |LVESV MOD A2C: 42.48 ml | |LVLs A2C: 6.28 cm | |LVESV MOD A4C: 27.58 ml | |LVLs A4C: 6.16 cm | |LAESV(A-L): 26.72 ml | |LAESV Index (A-L): 14.29 ml/m2 | |LAAs A2C: 10.08 cm2 | |LAESV A-L A2C: 22.57 ml | |LALs A2C: 3.82 cm | |LAAs A4C: 11.93 cm2 | |LAESV A-L A4C: 26.84 ml | |LALs A4C: 4.50 cm | |RAAs: 22.64 cm2 | |RAESV A-L: 80.25 ml | |RAESV MOD: 76.00 ml | |RALs: 5.42 cm | |TAPSE: 1.97 cm | |AV maxP.56 mmHg | |AV meanP.16 mmHg | |AV Vmax: 1.06 m/s | |AV Vmean: 0.66 m/s | |AV VTI: 16.57 cm | |CB Vmax: 2.81 cm2 | |CB (VTI): 2.82 cm2 | |AVAI Vmax: 0.00 cm2/m2 | |AVAI (VTI): 0.00 cm2/m2 | |LVOT maxP.06 mmHg | |LVOT meanP.62 mmHg | |LVSI Dopp: 25.03 ml/m2 | |LVSV Dopp: 46.81 ml | |LVOT Vmax: 0.87 m/s | |LVOT Vmean: 0.60 m/s | |LVOT VTI: 13.64 cm | |MV A Josh: 0.56 m/s | |MV Dec Meade: 3.22 m/s2 | |MV DecT: 145.47 ms | |MV E Josh: 0.46 m/s | |MV E/A Ratio: 0.82 | |MV PHT: 42.18 ms | |MVA By PHT: 5.21 cm2 | |Septal e': 0.03 m/s | |Septal E/e': 12.39 | |Lateral e': 0.07 m/s | |Lateral E/e': 6.15 | |RAP: 15 mmHg | |RVSP: 93.00 mmHg | |TR maxP.00 mmHg | |TR Vmax: 4.41 m/s | |RV s': 0.10 m/s | | | |Residential Property Tax Appraiser: | |Authenticated by: Preston Cardona | |Report Date/Time: 12-18-2018 18:42:9 | | | |IMPRESSION: | |1. The left ventricle is normal in size, wall thickness and systolic function EF 55-60%. | |2. There is septal flattening in diastole and systole which is consistent with elevated rig ht ventricular pressure. | |3. The right ventricle is severely enlarged and severely impaired systolic function. | |4. Severe tricuspid regurgitation and severe pulmonary hypertension RVSP 93 mmHg. | |5. There is no pericardial effusion. | + + documented in this encounter Visit Diagnoses Not on filedocumented in this encounter"
--- OUTSIDE RECORDS SUMMARY | ~2020-02-13 | XMS | Clinical Summary ---
Demographics + + + | Address | [address] | | | [place] [address] | + + + | Home Phone | | + + + | Preferred Language | Unknown | + + + | Marital Status | Single | + + + | Church Affiliation | Unknown | + + + | Race | Unknown | + + + | Ethnic Group | Unknown | + + + Author + + + | Author | [facility] | | | and [place] | + + + | Organization | [facility] | | | and [place] | [...] Team Providers + +------+ + | Care Pedicab Driver Name | Role | Phone | + +------+ + | Nirali Romero PA-C | PCP | | + +------+ + Allergies No Known Allergies Medications + + + +---------+------+------+-------+ | Medication | Sig | Dispensed | Refills | Star | End | Statu | | | | | | t | Date | s | | | | | | Date | | | + + + +---------+------+------+-------+ | furosemide (LASIX) | Take 2 tablets by | 180 | 3 | 04/1 | 04/1 | Activ | | 20 mg tablet | mouth Daily. | tablet | | 5/20 | 5/20 | e | | | | | | 20 | 21 | | + + + +---------+------+------+-------+ | potassium chloride | Take 2 capsules by | 90 | 3 | 10/14 | | Activ | | (MICRO-K) 10 mEq CR | mouth Daily. | capsule | | 5/20 | | e | | capsule | | | | 20 | | | + + + +---------+------+------+-------+ Active Problems + + + | Problem | Noted Date | + + + | Moderate to severe pulmonary hypertension | 01/01/2019 | + + + | CHF with right heart failure | 01/01/2019 | + + + | Syncope, vasovagal | 07/24/2018 | + + + | Tobacco abuse | 07/24/2018 | + + + | Prolonged QT interval syndrome | 07/24/2018 | + + + Encounters +--------+ + + + + | Date | Type | Specialty | Care Team | Description | +--------+ + + + + | 12/10/ | Telephone | Cardiology | Kaycee Niño | Medication Question | | 2019 | | | [employer] Lead Merchandiser | | +--------+ + + + + from Last 3 Months Family History + + +------+ + | Medical History | Relation | Name | Comments | + + +------+ + | Stroke | Father | | | + + +------+ + + +------+ + + | Relation | Name | Status | Comments | + +------+ + + | Father | | | Stroke | | | | (Age | | | | | 63) | | + +------+ + + | Father | | | | + +------+ + + | Mother | | Alive | | + +------+ + + Social History + +-------+ +--------+------+ [...] on file | | + + + Last Filed Vital Signs + + + [...] | | + + + + + Plan of Treatment + + +-------+ + | Health Maintenance | Due Date | Last | Comments | | | | Done | | + + +-------+ + | Hepatitis C | | | | | Screening | 1 | | | + + +-------+ + | Med Mgmt: Cr | | | | | | 1 | | | + + +-------+ + | Med Mgmt: K | | | | | | 1 | | | + + +-------+ + | Med Mgmt: Na | | | | | | 1 | | | + + +-------+ + | Medication | | | | | Management | 1 | | | + + +-------+ + | Vaccine: | | | | | Pneumococcal 19-64 | 7 | | | | (1 of 1 - PPSV23) | | | | + + +-------+ + | Vaccine: | | | | | Dtap/Tdap/Td (1 - | 0 | | | | Tdap) | | | | + + +-------+ + | Cervical Cancer | | | | | Screening (Pap) | 1 | | | + + +-------+ + | Vaccine: Influenza | | | | | (#1) | 0 | | | + + +-------+ + Results Not on filefrom Last 3 Months Insurance + +--------+ +--------+ +---------+--------+ | Payer | Benefi | Subscriber | Effect | Phone | Address | Type | | | t Plan | ID | mayra | | | | | | / | | Dates | | | | | | Group | | | | | | + +--------+ +--------+ +---------+--------+ | [employer] | [employer] | [id number] | | [phone] | | Medica | | MEDICAID HMO | HEALTH | | [phone] | 1 | | id | | | MDCD | | esent | | | | | | HMO [place] | | | | | | + +--------+ +--------+ +---------+--------+ + +--------+ +--------+ + + | Guarantor Name | Accoun | Relation to | Date | Phone | Billing Address | | | t Type | Patient | of | | | | | | | | | | + +--------+ +--------+ + + | Lu Reagan | Person | Self [birth year] | [address] | | | al/Fam | | 1981 | [phone] | [place] [address] | | | gita | | | 9 (Home) | | + +--------+ +--------+ + + Advance Directives + + + + + | Type | Date Recorded | Patient | Explanation | | | | Senior Construction Manager | | + + + + + | Power of | | | | | Clinical Professor | | | | + + + + + | Advance | | | | | Directive | | | | + + + + +
--- OUTSIDE RECORDS SUMMARY | ~2020-02-13 | XMS | Encounter Summary ---
Demographics + + + | Address | [address] | | | [place] [address] | + + + | Home Phone | | + + + | Preferred Language | Unknown | + + + | Marital Status | Single | + + + | Mandaeism Affiliation | Unknown | + + + | Race | Unknown | + + + | Ethnic Group | Unknown | + + + Author + + + | Author | [facility] | | | and [place] | + + + | Organization | [facility] | | [...] Team Providers + +------+ + | Care Event Technician Name | Role | Phone | + +------+ + | Nirali Romero PA-C | PCP | | + +------+ + Reason for Visit + +--------+ + | Reason | Onset | Comments | | | Date | | + +--------+ + | Medication Question | 12/10/ | | | | 2020 | | + +--------+ + Encounter Details +--------+ + + + + | Date | Type | Department | Care Team | Description | +--------+ + + + + | 12/10/ | Telephone | [facility] | Kaycee Niño | Medication Question | | 2019 | | CARDIOLOGY MARTY Maza, Director Vaccine | | | | | [address] | | | | | [address] [place] | | | | | | [phone] | | | | | | [phone] | | | +--------+ + + + [...] + + documented as of this encounter Miscellaneous Notes Telephone Encounter - Kaycee Niño Director Vaccine - 12/11/2019 3:46 PM PDTCalled pharmacy back and let them know of provider message. States understanding. Electronically signed by Jimmy Kingsley at 11/14 3:47 PM PDTTelephone Encounter - Kaycee Niño Director Vaccine - 12/11/2019 3:46 PM PDT----- Message from Preston Cardona MD sent at 12/11/2019 3:44 PM PDT ----- Yes they can ----- Message ----- From: Jimmy Kingsley Assistant Sent: 12/11/2019 3:25 PM PDT To: Preston Cardona MD [facility] pharmacy called and is wondering if they can fill tablets of potassium instead o f capsules. [phone] Thank you doc umented in this encounter Plan of Treatment Not on filedocumented as of this encounter Visit Diagnoses Not on filedocumented in this encounter"
--- OUTSIDE RECORDS SUMMARY | ~2020-02-13 | XMS | Clinical Summary ---
Demographics + + + | Address | [address] | | | [place] [address] | + + + | Home Phone | | + + + | Preferred Language | Unknown | + + + | Marital Status | Single | + + + | Alevism Affiliation | Unknown | + + + [...] Team Providers + +------+ + | Care Paint Roller Winder Name | Role | Phone | + +------+ + | Unknown | PCP | Unavailable | + +------+ + Source Comments SHIRA is fully live on both [facility] and 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
--- OUTSIDE RECORDS SUMMARY | ~2020-02-13 | XMS | Encounter Summary ---
Demographics + + + | Address | [address] | | | [place] [address] | + + + | Home Phone | | + + + | Preferred Language | Unknown | + + + | Marital Status | Single | + + + | Mandaeism Affiliation | Unknown | + + + | Race | Unknown | + + + | Ethnic Group | Unknown | + + + Author + + + | Author | [facility] | | | and [place] | + + + | Organization | [facility] | | | and [place] [...] Team Providers + +------+ + | Care Machine Stripper Name | Role | Phone | + +------+ + | Nirali Romero PA-C | PCP | | + +------+ + Encounter Details +--------+ + + + + | Date | Type | Department | Care Team | Description | +--------+ + + + + | 04/02/ | Documentati | [facility] | Cesar[place], | | | 2019 | on | CARDIOLOGY [place] | [address] | | | | [address] | [place] | | | | | [place] | [address] | | | | | [address] | | | | | | [phone] | | | +--------+ + + + [...] + documented as of this encounter Progress Notes Preston Cardona MD - 04/02/2019 10:54 AM PDTTo whom it may concern. Lu Fontaine [place] 1980 Currently under evaluation for her cardiac condition. Was diagnosed with severe pulmonary hypertension and severely impaired right ventricular fu nction. Currently referred to pulmonary hypertension clinic in [facility]. Patient will need to be on treatment, will need frequent follow-ups. Please allow follow-up visits and treatments. For any further questions please do not hesitate calling our clinic. Preston Cardona MD documented in this encounter Plan of Treatment Not on filedocumented as of this encounter Visit Diagnoses Not on filedocumented in this encounter"
[~2020-02-13 17:30] MED LIST changes: +FUROSEMIDE20 MG PO; +ZOFRAN4 MG PO
[2020-02-13] MEDS ORDERED: ISOSORBIDE MONO30 MG PO (17:37)
--- NOTE | 2020-02-14 13:13 | EKG ---
[facility] [address] [place] [address] Signed Normal sinus rhythm Biatrial enlargement Left posterior fascicular block T wave abnormality, consider inferolateral ischemia Abnormal ECG When compared with ECG of 09-APR-2019 03:41, Left posterior fascicular block is now present QT has shortened Confirmed by JULIUS FARIAS DO ([id number]) on 02/14/2020 1:12:46 PM Electronically Signed By: JULIUS FARIAS DO 02/14/20 1313 PATIENT NAME: RENEE LEWIS KAREN Electrocardiogram DATE OF : 80 PHYSICIAN: JULIUS FARIAS DO REPORT #: [id number] REPORT IS CONFIDENTIAL AND NOT TO BE RELEASED WITHOUT AUTHORIZATION
== END 2020-02-13 19:47 | disposition home or self-care (01) ==
LOC: ED 17:30
DX: R07.9 Chest pain, unspecified (principal); F31.9 Bipolar disorder, unspecified; F17.200 Nicotine dependence, unspecified, uncomplicated; Z79.899 Other long term (current) drug therapy
CPT/HCPCS: 71045; 93005; 93010; 99285-25

== ENCOUNTER 2020-07-22 00:55 | Emergency (ER) | payer OTHER ==
[~2020-07-22] VITALS: Ht 162.6 cm; Wt 82.6 kg
[~2020-07-22 00:55] MED LIST changes: +ISOSORBIDE MONO30 MG PO
[2020-07-22] MEDS ORDERED: POTASSIUM CHLO10 ME2 PO (01:14)
--- NOTE | 2020-07-22 17:35 | EKG ---
[facility] [address] [facility] [facility] [place] [address] Signed Sinus tachycardia Biatrial enlargement Left posterior fascicular block Nonspecific T wave abnormality Abnormal ECG When compared with ECG of 13-FEB-2020 17:49, T wave inversion less evident in Inferior leads Confirmed by LUCY CERDA MD ([id number]) on 07/22/2020 5:35:10 PM Electronically Signed By: LUCY CERDA MD 07/22/20 1735 PATIENT NAME: RENEE LEWIS KAREN Electrocardiogram DATE OF : 80 PHYSICIAN: LUCY CERDA MD REPORT #: [id number] REPORT IS CONFIDENTIAL AND NOT TO BE RELEASED WITHOUT AUTHORIZATION
== END 2020-07-22 01:29 | disposition home or self-care (01) ==
LOC: ED 00:55
DX: R07.9 Chest pain, unspecified (principal); F31.9 Bipolar disorder, unspecified; F17.200 Nicotine dependence, unspecified, uncomplicated; Z88.1 Allergy status to other antibiotic agents; Z79.899 Other long term (current) drug therapy
CPT/HCPCS: 93005; 93010; 99284-25

== ENCOUNTER 2021-07-24 15:02 | Emergency (ER) | payer SELFPAY ==
[~2021-07-24] VITALS: Ht 162.6 cm; Wt 77.1 kg
[~2021-07-24 15:02] MED LIST changes: +POTASSIUM CHLO10 ME2 PO
[2021-07-24] MEDS ORDERED: DOXYCYCLINE HY100 MG PO (20:25)
== END 2021-07-24 20:47 | disposition home or self-care (01) ==
LOC: ED 15:02
DX: N73.9 Female pelvic inflammatory disease, unspecified (principal); I50.9 Heart failure, unspecified; F17.200 Nicotine dependence, unspecified, uncomplicated; Z88.1 Allergy status to other antibiotic agents; Z79.899 Other long term (current) drug therapy
CPT/HCPCS: 74177; 80048; 81001; 84703; 85025; 99284-25; J0696; Q9967

== ENCOUNTER 2023-05-04 16:54 | Emergency (ER) | payer OTHER ==
[~2023-05-04] VITALS: Ht 162.6 cm; Wt 99.0 kg
[~2023-05-04 16:54] MED LIST changes: +DOXYCYCLINE HY100 MG PO
[2023-05-04] MEDS ORDERED: ISOSORBIDE DINIT5 MG PO (17:27)
[2023-05-04 17:44] LABS: BASOPHILS 0.8 % (0-2); HEMATOCRIT 44.2 % (35.0-50.0); HEMOGLOBIN 13.8 g/dL (12.0-18.0); LYMPHOCYTES 20.5 % (24-44); MCH 25.2 (27-36); MCHC 31.3 g/dl (30-36); MCV 80.6 fl (81-99); MONOCYTES 10.2 % (0-12); NEUTROPHILS 67.5 % (39-80); PLATELET COUNT 173 K/uL (140-440); RBC 5.48 M/ul (4.3-5.7); RDW 18.2 (10.5-15.0)
[2023-05-04 18:00] LABS: ALBUMIN 3.2 g/dL (3.4-5.0); ALBUMIN/GLOBULIN RATIO 0.94 (1.1-2.4); ANION GAP 8.3 (7-21); BILIRUBIN, TOTAL 2.5 ng/dL (0.2-1.0); BUN/CREATININE RATIO 19.1 (6.0-28.6); CALCIUM 8.3 mg/dL (8.5-10.1); CREATININE, SERUM 0.89 mg/dL (0.55-1.02); POTASSIUM 3.3 mmol/L (3.5-5.1); PROTEIN, TOTAL 6.6 g/dL (6.4-8.2)
[2023-05-04 18:55] LABS: INFLUENZA B NAA NEGATIVE (NEGATIVE); RESPIRATORY SYNCYTIAL VIR NAA NEGATIVE (NEGATIVE)
[2023-05-04 20:05] LABS: PH, VENOUS 7.425 (7.31-7.41)
[2023-05-04 20:36] LABS: AMPHETAMINES, URINE POSITIVE (NEGATIVE); BARBITURATES, URINE NEGATIVE (NEGATIVE); BENZODIAZEPINE, URINE NEGATIVE (NEGATIVE); BUPRENORPHINE, URINE NEGATIVE (NEGATIVE); CANNABINOID, URINE POSITIVE (NEGATIVE); COCAINE, URINE NEGATIVE (NEGATIVE); ECSTASY, URINE NEGATIVE (NEGATIVE); FENTANYL, URINE NEGATIVE (NEGATIVE); METHADONE, URINE NEGATIVE (NEGATIVE); OPIATES, URINE NEGATIVE (NEGATIVE); OXYCODONE, URINE NEGATIVE (NEGATIVE); PHENCYCLIDINE, URINE NEGATIVE (NEGATIVE)
[2023-05-04 22:21] VITALS: BP 112/99
--- NOTE | 2023-05-05 06:02 | EKG ---
[facility] [address] [place] [address] Signed Age and gender specific ECG analysis Atrial flutter with variable AV block with premature ventricular or aberrantly conducted complexes Low voltage QRS Left posterior fascicular block Possible Inferior infarct , age undetermined Cannot rule out Anteroseptal infarct , age undetermined Lateral injury pattern ACUTE CT / STEMI Abnormal ECG When compared with ECG of 22-JUL-2020 01:02, Atrial flutter has replaced Sinus rhythm Questionable change in QRS duration Minimal criteria for Anteroseptal infarct are now present Confirmed by DIANA AMOR MD ([id number]) on 05/05/2023 6:02:15 AM Electronically Signed By: DIANA AMOR 05/05/23 0602 PATIENT NAME: RENEE LEWIS KAREN Electrocardiogram DATE OF : 80 PHYSICIAN: DIANA AMOR REPORT #: [id number] REPORT IS CONFIDENTIAL AND NOT TO BE RELEASED WITHOUT AUTHORIZATION
== END 2023-05-04 22:30 | disposition short-term general hospital (02) ==
LOC: ED 16:54
PROVIDERS: Emergency Medicine; Family Medicine
DX: I27.20 Pulmonary hypertension, unspecified (principal); I48.92 Unspecified atrial flutter; F15.10 Other stimulant abuse, uncomplicated; I50.9 Heart failure, unspecified; F17.200 Nicotine dependence, unspecified, uncomplicated; Z88.1 Allergy status to other antibiotic agents; Z79.899 Other long term (current) drug therapy; Z20.822 Contact with and (suspected) exposure to COVID-19
CPT/HCPCS: 36415; 71045; 80053; 80307; 82140; 82803; 83880; 84484; 85025; 87502; 93005; 93010; 96374; 96375; 96376; 99285-25; C9803; J1940; J2060; U0002

== ENCOUNTER 2023-05-19 04:32 | Emergency (ER) | payer OTHER ==
[~2023-05-19] VITALS: Ht 162.6 cm; Wt 99.0 kg
[~2023-05-19 04:32] MED LIST changes: +ISOSORBIDE DINIT5 MG PO
--- OUTSIDE RECORDS SUMMARY | 2023-05-19 04:40 | XMS ---
PreManage Notification: RENEE LEWIS Security Food Expeditor Events No recent Security Events currently on file CRITERIA MET - [facility] - 2 Visits in 30 Days CARE PROVIDERS [address] Physician Pay Per Click Strategist 09/23/2018-Current PHONE: Unknown -, [place]- Dentist: [place] [facility] PHONE: [phone] Adan has no Care Guidelines for this patient. Care History Medical/Surgical 09/23/2018 [facility] PATIENT IS A [place] ELIGIBLE PLEASE REFER PATIENT TO [facility] FOR NON EMERGENT MEDICAL NEEDS. [facility] CAN SEE PATIENTS SAME DAY FOR APTS IF PATIENT CALLS FIRST THING IN THE MORNING. E.D. VISIT COUNT (12 MO.) 2 [facility] 2 [facility] T[facility] NOTE: Visits indicate total known visits. 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) drug therapy - Other specified soft tissue disorders - Other stimulant abuse, uncomplicated - Pulmonary hypertension, unspecified - Unspecified atrial flutter 10/06/2022 23:34 [facility] TYPE: Emergency DIAGNOSES: - Acute on chronic right heart failure - Erythematous condition, unspecified - Lymphedema, not elsewhere classified - Leg Swelling 09/27/2022 10:52 [facility] TYPE: Emergency COMPLAINT: - SWOLLEN R LEG DIAGNOSES: - SWOLLEN R LEG 09/07/2022 01:10 [facility] TYPE: Emergency DIAGNOSES: - Other psychoactive substance abuse, uncomplicated - Syncope and collapse - Unspecified fall, initial encounter - Unspecified injury of face, initial encounter - Fall - Seizure (Adult - New Onset) INPATIENT VISIT TRACKING (12 MO.) 05/05/2023 01:37 [facility] [place] TYPE: General Medicine DIAGNOSES: 12634. Heart failure, unspecified [address]. Pulmonary HTN, Right Sided HF. [place] [address]. Heart failure, unspecified 09/27/2022 10:52 [facility] [place] TYPE: Medical Surgical DIAGNOSES: - Acute cystitis without hematuria - Cellulitis of right lower limb - Other psychoactive substance abuse, uncomplicated [email or web address]
[2023-05-19 05:04] LABS: BASOPHILS 0.8 % (0-2); EOSINOPHILS 0.1 % (0-6); HEMATOCRIT 42.6 % (35.0-50.0); HEMOGLOBIN 13.1 g/dL (12.0-18.0); LYMPHOCYTES 25.1 % (24-44); MCH 25.1 (27-36); MCHC 30.9 g/dl (30-36); MCV 81.4 fl (81-99); PLATELET COUNT 153 K/uL (140-440); RBC 5.23 M/ul (4.3-5.7); RDW 20.5 (10.5-15.0)
[2023-05-19 05:13] LABS: PH, VENOUS 7.242 (7.31-7.41)
[2023-05-19 05:15] LABS: ALBUMIN 3.3 g/dL (3.4-5.0); ALBUMIN/GLOBULIN RATIO 0.79 (1.1-2.4); ANION GAP 20.8 (7-21); BILIRUBIN, TOTAL 3.9 ng/dL (0.2-1.0); BUN/CREATININE RATIO 20.19 (6.0-28.6); CREATININE, SERUM 1.04 mg/dL (0.55-1.02); MAGNESIUM 1.9 mg/dL (1.8-2.4); PROTEIN, TOTAL 7.5 g/dL (6.4-8.2)
[2023-05-19 05:35] LABS: POTASSIUM 5.3 mmol/L (3.5-5.1)
[2023-05-19 06:07] LABS: BASE EXCESS, BLOOD GAS -14.9 mmol/L (-2-2); HCO3, BLOOD GAS 13.6 mmol/L (22-26); O2 SATURATION, BLOOD GAS 98.7 % (95.0-100.0); OXYGEN RECEIVED, BLOOD GAS 100%; PH, BLOOD GAS 7.14 (7.35-7.45); PO2, BLOOD GAS 137 mmHg (80-100); TOTAL CO2, BLOOD GAS 14.8
[2023-05-19 07:08] LABS: INFLUENZA B NAA NEGATIVE (NEGATIVE); RESPIRATORY SYNCYTIAL VIR NAA NEGATIVE (NEGATIVE)
[2023-05-19 08:32] VITALS: BP 47/34
--- NOTE | 2023-05-20 15:19 | EKG ---
[facility] [address] [facility] [place], [place] [address] Signed Sinus tachycardia Left atrial enlargement Possible Right ventricular hypertrophy Possible Inferior infarct (cited on or before 04-MAY-2023) Abnormal ECG When compared with ECG of 04-MAY-2023 17:20, Significant changes have occurred Confirmed by ARTHUR CASTANEDA MD ([id number]) on 05/20/2023 3:19:32 PM Electronically Signed By: ARTHUR CASTANEDA 05/20/23 1519 PATIENT NAME: RENEE LEWIS KAREN Electrocardiogram DATE OF : 80 PHYSICIAN: ARTHUR CASTANEDA REPORT #: [id number] REPORT IS CONFIDENTIAL AND NOT TO BE RELEASED WITHOUT AUTHORIZATION
--- NOTE | 2023-05-23 09:39 | NUR ---
Received a call from Kathy Colon. States she is the mother of this patient. Patient was transferred to [facility] on 05/19/23 and that evening at [facility]. However, mother has been unable to get into contact with anyone to find patient, has questions regarding certificate and where patient is so they can plan services etc. Call [facility] in [place] and spoke with Radha in Spiritual Care. State patient is in their facility awaiting call from family. Direct line to received [phone]. Called Kathy Colon back at [phone], no answer. Message left with Focusing Machine Operator number and [facility] Case management number if she has any further questions to call back.
== END 2023-05-19 08:32 | disposition short-term general hospital (02) ==
LOC: ED 04:32
PROVIDERS: Family Medicine
DX: I27.20 Pulmonary hypertension, unspecified (principal); R57.0 Cardiogenic shock; I95.9 Hypotension, unspecified; J96.90 Respiratory failure, unspecified, unspecified whether with hypoxia or hypercapnia; F17.200 Nicotine dependence, unspecified, uncomplicated; Z88.1 Allergy status to other antibiotic agents; Z79.899 Other long term (current) drug therapy; Z20.822 Contact with and (suspected) exposure to COVID-19
CPT/HCPCS: 31500; 36415; 36556; 36600; 51702; 71045; 80053; 82803; 83605; 83735; 83880; 84484; 85025; 85060; 87502; 93005; 93010; 99285-25; J0171; J0282; J2060; J2371; J3010; J7030; J7060; J7070; U0002